=== PATIENT | female | born 1975 | race American Indian/Alaskan Native ===

== ENCOUNTER 2021-05-26 22:06 | Emergency (ER) | payer OTHER, MEDICAID ==
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
[2021-05-27 03:21] VITALS: BP 158/87
== END 2021-05-27 03:23 | disposition home or self-care (01) ==
LOC: ED 22:06
DX: M79.10 Myalgia, unspecified site (principal); I10 Essential (primary) hypertension; V89.2XXA Person injured in unspecified motor-vehicle accident, traffic, initial encounter; Y93.89 Activity, other specified; Y92.89 Other specified places as the place of occurrence of the external cause; Y99.8 Other external cause status
CPT/HCPCS: 99282